=== PATIENT | female | born 1990 | race Caucasian/White ===

== ENCOUNTER 2018-11-24 19:09 | Inpatient (IN) | payer SELFPAY ==
--- NOTE | 2018-11-24 19:59 | ER Document Report ---
ED Medical Screen (RME) - General Chief Complaint: Fever Stated Complaint: RIGHT LEG SWELLING/FEVER/NAUSEA Time Seen by Provider: 11/24/18 19:55 Mode of Arrival: Ambulatory Information source: Patient Notes: 28-year-old female presents to ED for complaint of pain and swelling to the right inner thigh. She states she had cellulitis before and she thinks she is having cellulitis again. There is no redness to the area area is tender to touch. She does have bilateral lymphedema to both legs. She have a temperature of 101.3 pulse of 118. She is shivering in the pit area. Patient states she is very nauseated. She states all the symptoms started 2 to 3 hours ago. She denies any cough and any respiratory symptoms or any urinary symptoms. I have greeted and performed a rapid initial assessment of this patient. A comprehensive ED assessment and evaluation of the patient, analysis of test results and completion of medical decision making process will be conducted by an additional ED providers. TRAVEL OUTSIDE OF THE [place] IN LAST 30 DAYS: No - Related Data Allergies/Adverse Reactions: sulfamethoxazole [From Bactrim] Allergy (Verified 02/13/16 11:07) trimethoprim [From Bactrim] Allergy (Verified 02/13/16 11:07) Past Medical History - Immunizations Hx Diphtheria, Pertussis, Tetanus Vaccination: Yes Physical Exam - Vital signs Vitals: Temp Pulse Resp BP Pulse Ox 100.3 F 118 H 18 134/81 H 98 11/24/18 19:21 11/24/18 19:21 11/24/18 19:21 11/24/18 19:21 11/24/18 19:21 Course - Vital Signs Vital signs: Temp Pulse Resp BP Pulse Ox 100.3 F 118 H 18 134/81 H 98 11/24/18 19:21 11/24/18 19:21 11/24/18 19:21 11/24/18 19:21 11/24/18 19:21
[2018-11-24] MEDS ORDERED: NORMAL SALINE 1000 ML 1,000 ML IV ONE (20:00)
[2018-11-24] MEDS ORDERED: CEFTRIAXONE 1 GM/D5W RTU 1 GM/50 ML RTUPB IV ONE (20:00)
[2018-11-24] MEDS ORDERED: ACETAMINOPHEN 325 MG TABLET PO ONE ×3 (20:01→21:25)
[2018-11-24 20:47] LABS: HEMATOCRIT 44.3 % (36.0-47.0); HEMOGLOBIN 15.4 g/dL (12.0-15.5); MEAN CORPUSCULAR HEMOGLOBIN 31.4 pg (27.0-33.4); MEAN CORPUSCULAR HGB CONC 34.7 g/dL (32.0-36.0); MEAN CORPUSCULAR VOLUME 90 fl (80-97); PLATELET COUNT 195 10^3/uL (150-450); RED BLOOD COUNT 4.91 10^6/uL (3.72-5.28); RED CELL DISTRIBUTION WIDTH 12.8 % (11.5-14.0)
[2018-11-24 20:48] LABS: WHITE BLOOD COUNT 22.4 10^3/uL (4.0-10.5)
[2018-11-24 21:11] LABS: ALBUMIN 4.9 g/dL (3.5-5.0); ALKALINE PHOSPHATASE 86 U/L (38-126); ANION GAP 11 (5-19); ASPARTATE AMINO TRANSFERASE 23 U/L (14-36); BILIRUBIN,DIRECT 0.2 mg/dL (0.0-0.4); BILIRUBIN,TOTAL 0.4 mg/dL (0.2-1.3); BLOOD UREA NITROGEN 11 mg/dL (7-20); CALCIUM 9.7 mg/dL (8.4-10.2); CARBON DIOXIDE 26 mmol/L (22-30); CHLORIDE 102 mmol/L (98-107); GLUCOSE 103 mg/dL (75-110); POTASSIUM 3.8 mmol/L (3.6-5.0); TOTAL PROTEIN 7.5 g/dL (6.3-8.2)
[2018-11-24] MEDS ORDERED: KETOROLAC TROMETHAMINE INJ/PF 30 MG/1 ML SDV IV ONE (21:16)
[2018-11-24] MEDS ORDERED: ONDANSETRON HCL INJ/PF 4 MG/2 ML SDV IV ONE (21:16)
[2018-11-24 21:18] LABS: APPEARANCE,URINE CLEAR; BILIRUBIN,URINE NEGATIVE (NEGATIVE); COLOR,URINE YELLOW; GLUCOSE, URINE NEGATIVE (NEGATIVE); KETONES,URINE TRACE mg/dL (NEGATIVE); LEUKOCYTE ESTERASE,URINE NEGATIVE (NEGATIVE); NITRITE,URINE NEGATIVE (NEGATIVE); PROTEIN,URINE NEGATIVE (NEGATIVE); URINE SPECIFIC GRAVITY 1.027
[2018-11-24 21:24] LABS: ABSOLUTE MONOCYTES # (MANUAL) 0.4 10^3/uL (0.1-1.4); BASOPHILS % (MANUAL) 0 % (0-2); EOSINOPHILS % (MANUAL) 1 % (0-6); LYMPHOCYTES % (MANUAL) 13 % (13-45); MONOCYTES % (MANUAL) 2 % (3-13); RBC MORPHOLOGY COMMENT NORMO-CYTIC/CHROMIC; SEGMENTED NEUTROPHILS % (MAN) 79 % (42-78); TOTAL CELLS COUNTED 100
[2018-11-24 21:25] LABS: PLATELET COMMENT ADEQUATE
--- NOTE | 2018-11-24 21:52 | ER Document Report ---
Entered by LISSETH JAUREGUI SCRIBE 11/24/[id number] Acting as scribe for:ARASH MCKEON MD ED General - General Chief Complaint: Fever Stated Complaint: RIGHT LEG SWELLING/FEVER/NAUSEA Time Seen by Provider: 11/24/18 19:55 Mode of Arrival: Ambulatory Information source: Patient Notes: Patient is a 28 year old female that presents to the emergency department today with complaints of fevers with associated right thigh pain. Patient states she became very nauseated and vomited after arriving here. Patient states she began her menstrual period yesterday, stating it is normal and on time. Patient denies any vaginal discharge. Patient has frequent cellulitis which she states is usually "around her right ankle". Patient has no areas of erythema over the area of pain. TRAVEL OUTSIDE OF THE [place] IN LAST 30 DAYS: No - Related Data Allergies/Adverse Reactions: doxycycline Allergy (Verified 11/24/18 19:59) sulfamethoxazole [From Bactrim] Allergy (Verified 11/24/18 19:59) trimethoprim [From Bactrim] Allergy (Verified 11/24/18 19:59) Past Medical History - General Information source: Patient - Social History Smoking Status: Current Every Day Smoker Cigarette use (# per day): Yes - 1/2-3/4 ppd Frequency of alcohol use: Rare Drug Abuse: None Lives with: Family Family History: Reviewed & Not Pertinent Patient has suicidal ideation: No Patient has homicidal ideation: No - Past Medical History Cardiac Medical History: Reports: Hx Hypertension Skin Medical History: Reports Hx Cellulitis - usually around the right ankle Surgical Hx: Negative - Immunizations Hx Diphtheria, Pertussis, Tetanus Vaccination: Yes Review of Systems - Review of Systems Constitutional: See HPI, Fever EENT: No symptoms reported Cardiovascular: No symptoms reported Respiratory: No symptoms reported Gastrointestinal: See HPI, Nausea, Vomiting Genitourinary: No symptoms reported Female Genitourinary: Last menstrual period - 11/23. denies: Vaginal discharge Musculoskeletal: See HPI, Muscle pain - body aches Skin: No symptoms reported Hematologic/Lymphatic: No symptoms reported Neurological/Psychological: No symptoms reported -: Yes All other systems reviewed and negative Physical Exam - Vital signs Vitals: Temp Pulse Resp BP Pulse Ox 100.3 F 118 H 18 134/81 H 98 11/24/18 19:21 11/24/18 19:21 11/24/18 19:21 11/24/18 19:21 11/24/18 19:21 - Notes Notes: Physical Exam: General: Alert, appears nauseated and uncomfortable. HEENT: Normocephalic. Atraumatic. PERRL. Extraocular movements intact. Oropharynx clear. Neck: Supple. Non-tender. Respiratory: No respiratory distress. Clear and equal breath sounds bilaterally. Cardiovascular: Regular rate and rhythm. Abdominal: Holding emesis bag. Non-tender. No distension. Normal Bowel Sounds. Back: No gross abnormalities. Extremities: Moves all four extremities. Upper extremities: Normal inspection. Normal ROM. Lower extremities: Normal ROM. Calves are soft and non-tender. Right inferior inguinal nodes are enlarged and very tender. The right medial thigh is exquisitely tender over the greater saphenous and lymphatics. There is a small ulcerated area in the skin on the right lateral lower leg with some circumferential erythema. Bilateral chronic lymph edema. Neurological: Normal cognition. AAOx4. Normal speech. Psychological: Normal affect. Normal Mood. Skin: Warm. Hot to the touch. Normal color. Course - Vital Signs Vital signs: Temp Pulse Resp BP Pulse Ox 101.5 F H 118 H 17 129/78 H 99 11/24/18 22:38 11/24/18 19:21 11/24/18 22:00 11/24/18 21:19 11/24/18 22:00 - Laboratory Result Diagrams: 11/24/18 20:25 11/24/18 20:25 Laboratory results interpreted by me: 11/24/18 11/24/18 20:25 20:55 WBC 22.4 H Seg Neuts % (Manual) 79 H Monocytes % (Manual) 2 L Abs Neuts (Manual) 17.7 H Urine Ketones TRACE H Urine Urobilinogen 2.0 H - Diagnostic Test Radiology reviewed: Image reviewed, Reports reviewed - Chest x-ray does not show acute cardiopulmonary process - Consults Dr. Naik Time consulted: 22:41 Consulted provider: will come to ER Discharge - Discharge Clinical Impression: Lymphadenopathy, inguinal Fever Qualifiers: Fever type: unspecified Qualified Code(s): R50.9 - Fever, unspecified Leukocytosis Qualifiers: Leukocytosis type: unspecified Qualified Code(s): D72.829 - Elevated white blood cell count, unspecified Nausea and vomiting Qualifiers: Vomiting type: unspecified Vomiting Intractability: non-intractable Qualified Code(s): R11.2 - Nausea with vomiting, unspecified Cellulitis Qualifiers: Site of cellulitis: extremity Site of cellulitis of extremity: lower extremity Laterality: right Qualified Code(s): L03.115 - Cellulitis of right lower limb Condition: Stable Disposition: ADMITTED INPATIENT Admitting Provider: Gumaro (Hospitalist) Unit Admitted: Medical Floor Scribe Attestation: 11/24/18 22:22 I personally performed the services described in the documentation, reviewed and edited the documentation which was dictated to the scribe in my presence, and it accurately records my words and actions. I personally performed the services described in the documentation, reviewed and edited the documentation which was dictated to the scribe in my presence, and it accurately records my words and actions.
--- NOTE | 2018-11-24 21:55 | RADIOLOGY REPORT (SQ) ---
Chest 2 view on 11/24/2018 at 8:47 PM CLINICAL INDICATION: Fever, pedal edema COMPARISON: 09/23/2015 FINDINGS: Heart is upper limits normal for size. There is slight elevation of the right hemidiaphragm. Hilar and mediastinal contours are within normal limits. The lungs are clear. Pulmonary vascularity is within normal limits. IMPRESSION: No acute disease.
[2018-11-24] MEDS ORDERED: VANCOMYCIN HCL INJ 1000 MG VIAL IV ONE (22:41)
[2018-11-24] MEDS ORDERED: VANCOMYCIN HCL INJ 1000 MG VIAL IV SCH (23:45)
[2018-11-24] MEDS ORDERED: MAGNESIUM HYDROXIDE SUSP 30 ML UDCUP PO PRN (23:55)
[2018-11-24] MEDS ORDERED: LEVALBUTEROL HCL NEB 0.63 MG/3 ML AMPUL NEB PRN (23:55)
[2018-11-24] MEDS ORDERED: HYDRALAZINE HCL INJ/PF 20 MG/1 ML SDV IV PRN (23:55)
[2018-11-24] MEDS ORDERED: NALBUPHINE HCL INJ 10 MG/1 ML AMPULE IV PRN (23:55)
[2018-11-24] MEDS ORDERED: MAG HYDROX/AL HYDROX/SIMETH SUSP 30 ML UDCUP PO PRN (23:55)
[2018-11-24] MEDS ORDERED: ONDANSETRON HCL INJ/PF 4 MG/2 ML SDV IV PRN (23:59)
[2018-11-25] MEDS: NICOTINE 21 MG/24 HR PATCH.TD24 TD PRN ×2 (00:22→23:29)
[2018-11-25] MEDS ORDERED: PIPERACILLIN/TAZOBACTAM 3.375 GM VIAL IV ONE (00:30)
[2018-11-25] MEDS: TEMAZEPAM 15 MG CAPSULE PO PRN ×2 (01:21→21:33)
[2018-11-25] MEDS: NALBUPHINE HCL INJ 10 MG/1 ML AMPULE IV PRN ×6 (01:21→23:17)
[2018-11-25 01:40] LABS: FREE T3 4.98 pg/mL (2.77-5.27); FREE T4 (FREE THYROXINE) 1.26 ng/dL (0.78-2.19)
[2018-11-25 01:54] LABS: THYROID STIMULATING HORMONE 0.66 uIU/mL (0.47-4.68)
--- NOTE | 2018-11-25 02:19 | PDOC H&P ---
History of Present Illness Admission Date/PCP: 11/24/2018 23:25 No local PCP Patient complains of: Right groin pain History of Present Illness: TIERA HARRISON is a 28 year old female who presents the emergency room with acute onset of pain in her right groin. She admits a rapidly intensifying constant pain which is now of moderate severity in the right groin radiating into the proximal right anteromedial thigh, starting late this afternoon. The groin pain has been accompanied by a fever as well as nausea and vomiting. The pain is worse with weightbearing/walking. She has not identified any additional accompanying or associated signs or symptoms. She admits prior similar episodes of cellulitis in her lower extremities. She has not identified any additional aggravating or ameliorating factors for her right groin pain. In the emergency room she was found to have a fever greater than 102 F and an elevated white blood count with tender palpable lymph nodes in the right inguinal distribution. She was also noted to be developing an area of erythema edema and tenderness in the lower leg/ankle region on the right which actually increased in size during her ER evaluation. Patient was subsequently admitted to the hospital for further evaluation and treatment. Past Medical History Cardiac Medical History: Reports: Hypertension Denies: Coronary Artery Disease, Myocardial Infarction Pulmonary Medical History: Denies: Asthma, Chronic Obstructive Pulmonary Disease (COPD) EENT Medical History: Denies: Cataracts, Ears - Hearing aids Neurological Medical History: Denies: Hemorrhagic CVA, Ischemic CVA, Seizures Endocrine Medical History: Denies: Diabetes Mellitus Type 1, Diabetes Mellitus Type 2, Hyperthyroidism, Hypothyroidism Renal/ Medical History: Denies: Chronic Kidney Disease, Nephrolithiasis Malignancy Medical History: Reports: None GI Medical History: Denies: Cirrhosis, Crohn's Disease, Hepatitis, Ulcerative Colitis Musculoskeltal Medical History: Reports: Other - Back pain problems Denies: Arthritis, Fibromyalgia, Gout Skin Medical History: Reports: Other - Cellulitis of lower extremities on several occasions Denies: Eczema, Psoriasis Psychiatric Medical History: Reports: Tobacco Dependency Denies: Alcohol Dependency, Substance Abuse Traumatic Medical History: Reports: None Hematology: Denies: Anemia, Bleeding Tendencies Infectious Medical History: Reports: None Past Surgical History Past Surgical History: Reports: None Social History Information Source: Patient Lives with: Alone Smoking Status: Current Every Day Smoker Frequency of Alcohol Use: None Hx Recreational Drug Use: No Drugs: None Hx Prescription Drug Abuse: No - Advance Directive Resuscitation Status: Full Code Surrogate healthcare decision maker:: Janel Harrison Family History Family History: denies: CAD, DM, Hypertension, Malignancy Parental Family History Reviewed: Yes Children Family History Reviewed: No Sibling(s) Family History Reviewed.: Yes Medication/Allergy Home Medications: Cephalexin Monohydrate [Keflex 500 mg Capsule] 500 mg PO QID 10 Days capsule 09/17/14 Doxycycline Hyclate 100 mg PO BID #14 capsule 11/13/14 Cetirizine HCl [Zyrtec 10 mg Tablet] 1 tab PO DAILY #30 tablet 11/15/14 Clindamycin HCl [Cleocin 150 mg Capsule] 150 mg PO Q6 #40 capsule 11/15/14 Ranitidine HCl [Zantac 150 mg Tablet] 150 mg PO DAILY #30 tablet 11/15/14 Cephalexin Monohydrate [Keflex 500 mg Capsule] 500 mg PO Q6H 7 Days capsule 04/21/15 Prednisone [Deltasone 10 mg Tablet] 10 mg PO ASDIR PRN #21 tablet 04/21/15 Ranitidine HCl [Zantac 150 mg Tablet] 150 mg PO BID #14 tablet 04/21/15 Cetirizine HCl [Zyrtec] 10 mg PO DAILY #30 tablet 07/13/15 Prednisone [Deltasone] 60 mg PO DAILY 5 Days tablet 07/13/15 Cephalexin Monohydrate [Keflex 500 mg Capsule] 500 mg PO QID #40 capsule 08/28/15 Ondansetron [Zofran Odt 4 mg Tablet] 1 - 2 tab PO Q4H #10 tab.rapdis 09/06/15 Azithromycin [Zithromax 250 mg Tablet] 250 mg PO ASDIR PRN #6 tablet 10/01/15 Prednisone [Deltasone 10 mg Tablet] 10 mg PO ASDIR PRN #21 tablet 10/01/15 Clindamycin HCl 300 mg PO TID #30 capsule 10/24/15 Mupirocin 22 gm TP BID #1 oint..gm. 10/24/15 Cyclobenzaprine HCl [Flexeril 5 mg Tablet] 5 mg PO TID #7 tablet 11/11/15 Hydrocodone/Acetaminophen [Vicodin 5-300 mg Tablet] 1 - 2 tab PO ASDIR PRN #10 tab 11/11/15 Prednisone [Deltasone 20 mg Tablet] 3 tab PO DAILY 5 Days tablet 12/09/15 Tramadol HCl 50 mg PO Q6 PRN #15 tablet 12/09/15 Penicillin V Potassium [Penicillin Vk 500 mg Tablet] 500 mg PO QID #40 tablet 02/13/16 Tramadol HCl [Ultram 50 mg Tablet] 50 mg PO ASDIR PRN #20 tablet 02/13/16 Allergies/Adverse Reactions: doxycycline Allergy (Verified 11/24/18 19:59) sulfamethoxazole [From Bactrim] Allergy (Verified 11/24/18 19:59) trimethoprim [From Bactrim] Allergy (Verified 11/24/18 19:59) Review of Systems Constitutional: PRESENT: chills, fever(s) Eyes: ABSENT: visual disturbances, other - Eye pain Ears: ABSENT: hearing changes, other - Ear pain Nose, Mouth, and Throat: ABSENT: mouth pain, sore throat Cardiovascular: ABSENT: chest pain, palpitations Respiratory: ABSENT: cough, dyspnea Gastrointestinal: PRESENT: as per HPI, nausea, vomiting. ABSENT: abdominal pain, constipation, diarrhea Genitourinary: ABSENT: dysuria, hematuria Integumentary: PRESENT: as per HPI, erythema - Erythema and swelling of the distal right lower leg/ankle, other - Tenderness to palpation in the right groin. ABSENT: pruritus, rash Neurological: ABSENT: confusion, convulsions, focal weakness, memory loss, syncope Psychiatric: ABSENT: anxiety, depression Endocrine: ABSENT: cold intolerance, heat intolerance Hematologic/Lymphatic: ABSENT: easy bleeding, easy bruising Allergic/Immunologic: ABSENT: seasonal rhinorrhea Physical Exam Vital Signs: Temp Pulse Resp BP Pulse Ox 101.5 F H 118 H 17 129/78 H 99 11/24/18 22:38 11/24/18 19:21 11/24/18 22:00 11/24/18 21:19 11/24/18 22:00 Intake & Output 11/22/18 11/23/18 11/24/18 23:59 23:59 23:59 Intake Total 1050 Balance 1050 Weight 103.8 kg General appearance: PRESENT: no acute distress, cooperative Head exam: PRESENT: atraumatic, normocephalic Eye exam: PRESENT: conjunctiva pink. ABSENT: conjunctival injection, scleral icterus Ear exam: PRESENT: normal external ear exam. ABSENT: bleeding, drainage Mouth exam: PRESENT: dry mucosa, neck supple Neck exam: ABSENT: thyromegaly, tracheal deviation Respiratory exam: PRESENT: clear to auscultation sourav, symmetrical, unlabored Cardiovascular exam: PRESENT: RRR. ABSENT: clicks, gallop, rubs Pulses: PRESENT: normal radial pulses, normal dorsalis pedis pul Vascular exam: PRESENT: normal capillary refill. ABSENT: pallor GI/Abdominal exam: PRESENT: normal bowel sounds, soft Rectal exam: PRESENT: deferred Extremities exam: PRESENT: tenderness - Tenderness and swelling with local erythema in the right distal lower leg/ankle, tenderness and swelling with palpable lymphadenopathy in the right groin.. ABSENT: joint swelling, pedal edema Musculoskeletal exam: ABSENT: deformity, dislocation Neurological exam: PRESENT: alert, oriented to person, oriented to place, oriented to time, oriented to situation, CN II-XII grossly intact. ABSENT: motor sensory deficit Psychiatric exam: PRESENT: appropriate affect, normal mood Skin exam: PRESENT: dry, erythema - Erythema and tenderness in the right groin and lower extremity as previously described, intact, warm. ABSENT: jaundice, rash, urticaria Results Laboratory Results: 11/24/18 20:25 11/24/18 20:25 11/24/18 11/24/18 11/24/18 20:25 20:25 20:25 WBC 22.4 H RBC 4.91 Hgb 15.4 Hct 44.3 MCV 90 MCH 31.4 MCHC 34.7 RDW 12.8 Plt Count 195 Seg Neutrophils % Not Reportable Sodium 139.1 Potassium 3.8 Chloride 102 Carbon Dioxide 26 Anion Gap 11 BUN 11 Creatinine 0.85 Est GFR ( Amer) > 60 Glucose 103 Lactic Acid Calcium 9.7 Total Bilirubin 0.4 AST 23 Alkaline Phosphatase 86 Total Protein 7.5 Albumin 4.9 Serum HCG, Qual NEGATIVE Urine Color Urine Appearance Urine pH Ur Specific Turney Urine Protein Urine Glucose (UA) Urine Ketones Urine Blood Urine Nitrite Ur Leukocyte Esterase Urine WBC (Auto) Urine RBC (Auto) 11/24/18 11/24/18 20:25 20:55 WBC RBC Hgb Hct MCV MCH MCHC RDW Plt Count Seg Neutrophils % Sodium Potassium Chloride Carbon Dioxide Anion Gap BUN Creatinine Est GFR ( Amer) Glucose Lactic Acid 1.9 Calcium Total Bilirubin AST Alkaline Phosphatase Total Protein Albumin Serum HCG, Qual Urine Color YELLOW Urine Appearance CLEAR Urine pH 5.0 Ur Specific Turney 1.027 Urine Protein NEGATIVE Urine Glucose (UA) NEGATIVE Urine Ketones TRACE H Urine Blood NEGATIVE Urine Nitrite NEGATIVE Ur Leukocyte Esterase NEGATIVE Urine WBC (Auto) 3 Urine RBC (Auto) 1 Impressions: Chest X-Ray 11/24/18 20:00 IMPRESSION: No acute disease. Assessment and Plan - Diagnosis (1) Cellulitis of right lower leg Is this a current diagnosis for this admission?: Yes Plan: Patient cellulitis will be treated with intravenous antibiotics utilizing vancomycin and Zosyn. Patient's clinical course will be observed closely with further intervention as indicated. Blood cultures are pending at the present time. A daily CBC, metabolic profile and magnesium level will be obtained. (2) Lymphadenopathy, inguinal Is this a current diagnosis for this admission?: Yes Plan: The patient's inguinal lymphadenopathy will be treated for its infectious etiology as noted above for the treatment of cellulitis. The pain associated w ith the patient's inguinal lymphadenopathy will be treated with Nubain 5 to 10 mg IV every 3 hours on a as needed basis (using a sliding scale) for more severe pain, for lesser pain she will be able to use Tylenol or ibuprofen at her preference. (3) Nausea & vomiting Qualifiers: Vomiting type: unspecified Vomiting Intractability: non-intractable Qualified Code(s): R11.2 - Nausea with vomiting, unspecified Is this a current diagnosis for this admission?: Yes Plan: Patient's nausea and vomiting will be treated with IV Zofran 4 mg every 4 hours as needed. (4) Fever Qualifiers: Fever type: unspecified Qualified Code(s): R50.9 - Fever, unspecified Is this a current diagnosis for this admission?: Yes Plan: Patient's fever will be treated with ibuprofen and/or Tylenol as required. (5) Leukocytosis Qualifiers: Leukocytosis type: unspecified Qualified Code(s): D72.829 - Elevated white blood cell count, unspecified Is this a current diagnosis for this admission?: Yes Plan: Patient's leukocytosis will be monitored with a daily CBC. (6) Tobacco use disorder, severe, dependence Is this a current diagnosis for this admission?: Yes Plan: Smoking cessation has been advised and counseling has been given at the bedside briefly. A nicotine replacement patch is available for the patient's use, as desired. - Time Time Spent with patient: 15-24 minutes Smoking Cessation Education: 3 to 10 minutes Medications reviewed and adjusted accordingly: Yes Anticipated discharge: Home - Inpatient Certification Based on my medical assessment, after consideration of the patient's comor bidities, presenting symptoms, or acuity I expect that the services needed warrant INPATIENT care.: Yes I certify that my determination is in accordance with my understanding of Medicare's requirements for reasonable and necessary INPATIENT services [42 CFR 412.3e].: Yes Medical Necessity: Need Close Monitoring Due to Risk of Patient Decompensation, Need for Pain Control, Need for IV Antibiotics, Risk of Complication if Not Cared For in Hospital
[2018-11-25] MEDS: IBUPROFEN 800 MG TABLET PO PRN (06:18)
[2018-11-25] MEDS: HEPARIN SOD (PORCINE) 5,000 UNIT/ML 1 ML VIAL SUBCUT SCH ×3 (06:19→21:32)
[2018-11-25 08:14] LABS: HEMATOCRIT 35.6 % (36.0-47.0); MEAN CORPUSCULAR HEMOGLOBIN 31.7 pg (27.0-33.4); MEAN CORPUSCULAR VOLUME 91 fl (80-97); PLATELET COUNT 144 10^3/uL (150-450); RED BLOOD COUNT 3.93 10^6/uL (3.72-5.28); RED CELL DISTRIBUTION WIDTH 12.6 % (11.5-14.0); WHITE BLOOD COUNT 25.2 10^3/uL (4.0-10.5)
[2018-11-25 08:32] LABS: ANION GAP 8 (5-19); BLOOD UREA NITROGEN 13 mg/dL (7-20); CALCIUM 8.8 mg/dL (8.4-10.2); CARBON DIOXIDE 23 mmol/L (22-30); CHLORIDE 105 mmol/L (98-107); CHOLESTEROL 129.16 mg/dL (0-200); GLUCOSE 102 mg/dL (75-110); POTASSIUM 3.9 mmol/L (3.6-5.0); TRIGLYCERIDES 86 mg/dL (<150)
[2018-11-25 08:43] LABS: DIRECT LDL 84 mg/dL (<100)
[2018-11-25 08:49] LABS: HEMOGLOBIN 12.5 g/dL (12.0-15.5)
[2018-11-25] MEDS: DOCUSATE SODIUM 100 MG CAPSULE PO SCH ×2 (09:54→17:38)
[2018-11-25] MEDS: FAMOTIDINE 20 MG TABLET PO SCH ×2 (09:54→21:33)
--- NOTE | 2018-11-25 10:34 | Progress Note Acknowledgement ---
Progress Note Acknowledgement Progess Note Acknowledgement: I, the undersigned member of the medical staff with appropriate privileges and with supervisory authority over [Mingo Woods], a dependent practice allied health professional, acknowledge that I have reviewed the progress notes entered on this patient, and in my professional judgment believe that the assessment made and/or any care evidenced was appropriate
--- NOTE | 2018-11-25 10:38 | PDOC PROGRESS REPORT ---
Subjective Progress Note for:: 11/25/18 Subjective:: 11/25/2018-no complaints this a.m. Reason For Visit: CELLULITIS RIGHT LOWER EXTREMITY Physical Exam Vital Signs: Temp Pulse Resp BP Pulse Ox 98.8 F 82 16 102/56 L 97 11/25/18 08:00 11/25/18 08:00 11/25/18 08:00 11/25/18 08:00 11/25/18 08:00 Intake & Output 11/24/18 11/25/18 11/26/18 06:59 06:59 06:59 Intake Total 1310 Balance 1310 Weight 104.1 kg General appearance: PRESENT: no acute distress, well-developed, well-nourished Head exam: PRESENT: atraumatic, normocephalic Eye exam: PRESENT: conjunctiva pink, EOMI, PERRLA. ABSENT: scleral icterus Ear exam: PRESENT: normal external ear exam Mouth exam: PRESENT: moist, tongue midline Teeth exam: PRESENT: dental caries, poor dentation Neck exam: ABSENT: carotid bruit, JVD, lymphadenopathy, thyromegaly Respiratory exam: PRESENT: clear to auscultation sourav. ABSENT: rales, rhonchi, wheezes Cardiovascular exam: PRESENT: RRR. ABSENT: diastolic murmur, rubs, systolic murmur Pulses: PRESENT: normal dorsalis pedis pul Vascular exam: PRESENT: normal capillary refill GI/Abdominal exam: PRESENT: normal bowel sounds, soft. ABSENT: distended, guarding, mass, organolmegaly, rebound, tenderness Rectal exam: PRESENT: deferred Extremities exam: PRESENT: full ROM. ABSENT: calf tenderness, clubbing, pedal edema Neurological exam: PRESENT: alert, awake, oriented to person, oriented to place, oriented to time, oriented to situation, CN II-XII grossly intact. ABSENT: motor sensory deficit Psychiatric exam: PRESENT: appropriate affect, normal mood. ABSENT: homicidal ideation, suicidal ideation Skin exam: PRESENT: dry, intact, warm, other - Cellulitis of the right lower extremity involving the anterior lower extremity from proximal ankle to mid cartwright anteriorly. ABSENT: cyanosis, rash Results Laboratory Results: 11/25/18 07:33 11/25/18 07:33 11/24/18 11/24/18 11/24/18 20:25 20:25 20:25 WBC 22.4 H RBC 4.91 Hgb 15.4 Hct 44.3 MCV 90 MCH 31.4 MCHC 34.7 RDW 12.8 Plt Count 195 Seg Neutrophils % Not Reportable Sodium 139.1 Potassium 3.8 Chloride 102 Carbon Dioxide 26 Anion Gap 11 BUN 11 Creatinine 0.85 Est GFR ( Amer) > 60 Glucose 103 Lactic Acid Calcium 9.7 Magnesium Total Bilirubin 0.4 AST 23 Alkaline Phosphatase 86 Total Protein 7.5 Albumin 4.9 Triglycerides Cholesterol LDL Cholesterol Direct VLDL Cholesterol HDL Cholesterol TSH Free T4 Free T3 pg/mL Serum HCG, Qual NEGATIVE Urine Color Urine Appearance Urine pH Ur Specific [place] Urine Protein Urine Glucose (UA) Urine Ketones Urine Blood Urine Nitrite Ur Leukocyte Esterase Urine WBC (Auto) Urine RBC (Auto) 11/24/18 11/24/18 11/24/18 20:25 20:25 20:55 WBC RBC Hgb Hct MCV MCH MCHC RDW Plt Count Seg Neutrophils % Sodium Potassium Chloride Carbon Dioxide Anion Gap BUN Creatinine Est GFR ( Amer) Glucose Lactic Acid 1.9 Calcium Magnesium Total Bilirubin AST Alkaline Phosphatase Total Protein Albumin Triglycerides Cholesterol LDL Cholesterol Direct VLDL Cholesterol HDL Cholesterol TSH 0.66 Free T4 1.26 Free T3 pg/mL 4.98 Serum HCG, Qual Urine Color YELLOW Urine Appearance CLEAR Urine pH 5.0 Ur Specific [place] 1.027 Urine Protein NEGATIVE Urine Glucose (UA) NEGATIVE Urine Ketones TRACE H Urine Blood NEGATIVE Urine Nitrite NEGATIVE Ur Leukocyte Esterase NEGATIVE Urine WBC (Auto) 3 Urine RBC (Auto) 1 11/25/18 11/25/18 07:33 07:33 WBC 25.2 H RBC 3.93 Hgb 12.5 D Hct 35.6 L MCV 91 MCH 31.7 MCHC 35.0 RDW 12.6 Plt Count 144 L Seg Neutrophils % Sodium 136.3 L Potassium 3.9 Chloride 105 Carbon Dioxide 23 Anion Gap 8 BUN 13 Creatinine 0.73 Est GFR ( Amer) > 60 Glucose 102 Lactic Acid Calcium 8.8 Magnesium 1.6 Total Bilirubin AST Alkaline Phosphatase Total Protein Albumin Triglycerides 86 Cholesterol 129.16 LDL Cholesterol Direct 84 VLDL Cholesterol 17.0 HDL Cholesterol 39 L TSH Free T4 Free T3 pg/mL Serum HCG, Qual Urine Color Urine Appearance Urine pH Ur Specific [place] Urine Protein Urine Glucose (UA) Urine Ketones Urine Blood Urine Nitrite Ur Leukocyte Esterase Urine WBC (Auto) Urine RBC (Auto) Impressions: Chest X-Ray 11/24/18 20:00 IMPRESSION: No acute disease. Assessment and Plan - Diagnosis (1) Cellulitis of right lower leg Is this a current diagnosis for this admission?: Yes Plan: Patient cellulitis will be treated with intravenous antibiotics utilizing vancomycin and Zosyn. Patient's clinical course will be observed closely with further intervention as indicated. Blood cultures are pending at the present time. A daily CBC, metabolic profile and magnesium level will be obtained. 11/25/2018-blood cultures returning with gram-positive cocci in chains. Continue vancomycin at this time. Continue Zosyn as well until cultures have completed. (2) Lymphadenopathy, inguinal Is this a current diagnosis for this admission?: Yes Plan: The patient's inguinal lymphadenopathy will be treated for its infectious etiology as noted above for the treatment of cellulitis. The pain associated with the patient's inguinal lymphadenopathy will be treated with Nubain 5 to 10 mg IV every 3 hours on a as needed basis (using a sliding scale) for more severe pain, for lesser pain she will be able to use Tylenol or ibuprofen at her preference. 11/25/2018-improved this morning. Continue PRN new pain. (3) Nausea & vomiting Qualifiers: Vomiting type: unspecified Vomiting Intractability: non-intractable Qualified Code(s): R11.2 - Nausea with vomiting, unspecified Is this a current diagnosis for this admission?: Yes Plan: Patient's nausea and vomiting will be treated with IV Zofran 4 mg every 4 hours as needed. 11/25/2018-continue Zofran. (4) Fever Qualifiers: Fever type: unspecified Qualified Code(s): R50.9 - Fever, unspecified Is this a current diagnosis for this admission?: Yes Plan: Patient's fever will be treated with ibuprofen and/or Tylenol as required. 11/25/2018-continue PRN ibuprofen and Tylenol as needed (5) Leukocytosis Qualifiers: Leukocytosis type: unspecified Qualified Code(s): D72.829 - Elevated white blood cell count, unspecified Is this a current diagnosis for this admission?: Yes Plan: Patient's leukocytosis will be monitored with a daily CBC. 11/25/2018-worsened this a.m. Patient does show gram-positive cocci in chains. Continues on Vanco Zosyn. - Time Time Spent with patient: 15-24 minutes - Inpatient Certification Based on my medical assessment, after consideration of the patient's comorbidities, presenting symptoms, or acuity I expect that the services needed warrant INPATIENT care.: Yes I certify that my determination is in accordance with my understanding of Medicare's requirements for reasonable and necessary INPATIENT services [42 CFR 412.3e].: Yes Medical Necessity: Other - IV advised, IV pain control
[2018-11-25] MEDS: ACETAMINOPHEN 325 MG TABLET PO PRN ×2 (11:28→18:10)
[2018-11-25] MEDS: PIPERACILLIN SODIUM/TAZOBACTAM 3.375 GM in NORMAL SALINE 100 ML IV SCH ×3 (13:00→23:17)
[2018-11-25] MEDS: VANCOMYCIN HCL 1,500 MG in DEXTROSE 5%-WATER 250 ML IV SCH ×2 (14:42→21:32)
[2018-11-26] MEDS: ACETAMINOPHEN 325 MG TABLET PO PRN (03:28)
[2018-11-26] MEDS: NALBUPHINE HCL INJ 10 MG/1 ML AMPULE IV PRN ×7 (03:39→23:50)
[2018-11-26] MEDS: PIPERACILLIN SODIUM/TAZOBACTAM 3.375 GM in NORMAL SALINE 100 ML IV SCH ×4 (06:27→23:43)
[2018-11-26 06:38] LABS: HEMATOCRIT 36.5 % (36.0-47.0); HEMOGLOBIN 12.7 g/dL (12.0-15.5); MEAN CORPUSCULAR HEMOGLOBIN 31.6 pg (27.0-33.4); MEAN CORPUSCULAR HGB CONC 34.8 g/dL (32.0-36.0); MEAN CORPUSCULAR VOLUME 91 fl (80-97); PLATELET COUNT 130 10^3/uL (150-450); RED BLOOD COUNT 4.02 10^6/uL (3.72-5.28); RED CELL DISTRIBUTION WIDTH 12.8 % (11.5-14.0); WHITE BLOOD COUNT 12.8 10^3/uL (4.0-10.5)
[2018-11-26] MEDS: VANCOMYCIN HCL 1,500 MG in DEXTROSE 5%-WATER 250 ML IV SCH ×3 (06:48→21:00)
[2018-11-26] MEDS: HEPARIN SOD (PORCINE) 5,000 UNIT/ML 1 ML VIAL SUBCUT SCH ×2 (06:49→17:25)
[2018-11-26 06:59] LABS: ANION GAP 6 (5-19); BLOOD UREA NITROGEN 7 mg/dL (7-20); CALCIUM 8.8 mg/dL (8.4-10.2); CARBON DIOXIDE 24 mmol/L (22-30); CHLORIDE 109 mmol/L (98-107); GLUCOSE 121 mg/dL (75-110); POTASSIUM 3.7 mmol/L (3.6-5.0)
[2018-11-26] MEDS: IBUPROFEN 800 MG TABLET PO PRN ×2 (08:53→17:41)
[2018-11-26] MEDS: FAMOTIDINE 20 MG TABLET PO SCH ×2 (10:28→20:59)
[2018-11-26] MEDS: DOCUSATE SODIUM 100 MG CAPSULE PO SCH ×2 (10:28→17:25)
--- NOTE | 2018-11-26 17:26 | PDOC PROGRESS REPORT ---
Subjective Progress Note for:: 11/26/18 Subjective:: Patient is a 28-year-old female with prior leg cellulitis who presented with increasing pain, swelling and tenderness in the right lower extremity. She was admitted for right lower extremity cellulitis and was started on IV antibiotics. No acute event overnight. Patient says that the erythema and swelling have improved but the pain is slightly worse from yesterday. She denies any other acute complaints. Cellulitic lesions have not gone beyond the day medications. Reason For Visit: CELLULITIS RIGHT LOWER EXTREMITY Physical Exam Vital Signs: Temp Pulse Resp BP Pulse Ox 98.6 F 69 20 103/58 L 98 11/26/18 12:00 11/26/18 12:00 11/26/18 12:00 11/26/18 12:00 11/26/18 12:00 Intake & Output 11/25/18 11/26/18 11/27/18 06:59 06:59 06:59 Intake Total 1310 1400 1291 Balance 1310 1400 1291 Weight 229 lb 8.019 oz 245 lb 2.464 oz General appearance: PRESENT: no acute distress, well-developed, well-nourished Head exam: PRESENT: atraumatic, normocephalic Eye exam: PRESENT: conjunctiva pink, EOMI, PERRLA. ABSENT: scleral icterus Ear exam: PRESENT: normal external ear exam Mouth exam: PRESENT: moist, tongue midline Neck exam: ABSENT: carotid bruit, JVD, lymphadenopathy, thyromegaly Respiratory exam: PRESENT: clear to auscultation sourav. ABSENT: rales, rhonchi, wheezes Cardiovascular exam: PRESENT: RRR. ABSENT: diastolic murmur, rubs, systolic murmur Pulses: PRESENT: normal dorsalis pedis pul GI/Abdominal exam: PRESENT: normal bowel sounds, soft. ABSENT: distended, guarding, mass, organolmegaly, rebound, tenderness Rectal exam: PRESENT: deferred Extremities exam: PRESENT: other - Note of erythema and swelling on the right leg and her right medial thigh Neurological exam: PRESENT: alert, awake, oriented to person, oriented to place, oriented to time, oriented to situation, CN II-XII grossly intact. ABSENT: motor sensory deficit Results Laboratory Results: 11/26/18 06:14 11/26/18 06:14 11/26/18 11/26/18 06:14 06:14 WBC 12.8 H RBC 4.02 Hgb 12.7 Hct 36.5 MCV 91 MCH 31.6 MCHC 34.8 RDW 12.8 Plt Count 130 L Sodium 139.4 Potassium 3.7 Chloride 109 H Carbon Dioxide 24 Anion Gap 6 BUN 7 Creatinine 0.76 Est GFR ( Amer) > 60 Glucose 121 H Calcium 8.8 Magnesium 1.8 Impressions: Chest X-Ray 11/24/18 20:00 IMPRESSION: No acute disease. Assessment and Plan - Diagnosis (1) Cellulitis of right lower extremity Is this a current diagnosis for this admission?: Yes Plan: Currently on vancomycin and Zosyn. Blood cultures are growing group A strep 2/2. Will await final sensitivity tomorrow prior to de-escalation. (2) Streptococcal bacteremia Is this a current diagnosis for this admission?: Yes Plan: As per #1. - Time Time Spent with patient: 25-34 minutes
[2018-11-26] MEDS: TEMAZEPAM 15 MG CAPSULE PO PRN (23:43)
[2018-11-27] MEDS: NALBUPHINE HCL INJ 10 MG/1 ML AMPULE IV PRN ×4 (06:10→20:02)
[2018-11-27] MEDS: IBUPROFEN 800 MG TABLET PO PRN ×2 (06:11→19:05)
[2018-11-27] MEDS: PIPERACILLIN SODIUM/TAZOBACTAM 3.375 GM in NORMAL SALINE 100 ML IV SCH ×2 (06:11→11:36)
[2018-11-27 06:49] LABS: HEMATOCRIT 42.9 % (36.0-47.0); HEMOGLOBIN 14.7 g/dL (12.0-15.5); MEAN CORPUSCULAR HEMOGLOBIN 31.5 pg (27.0-33.4); MEAN CORPUSCULAR HGB CONC 34.3 g/dL (32.0-36.0); MEAN CORPUSCULAR VOLUME 92 fl (80-97); PLATELET COUNT 136 10^3/uL (150-450); RED BLOOD COUNT 4.68 10^6/uL (3.72-5.28); RED CELL DISTRIBUTION WIDTH 13.2 % (11.5-14.0); WHITE BLOOD COUNT 10.3 10^3/uL (4.0-10.5)
[2018-11-27] MEDS: VANCOMYCIN HCL 1,500 MG in DEXTROSE 5%-WATER 250 ML IV SCH ×2 (06:59→14:23)
[2018-11-27 07:03] LABS: ANION GAP 8 (5-19); BLOOD UREA NITROGEN 4 mg/dL (7-20); CALCIUM 9.8 mg/dL (8.4-10.2); CARBON DIOXIDE 26 mmol/L (22-30); CHLORIDE 110 mmol/L (98-107); GLUCOSE 85 mg/dL (75-110); POTASSIUM 4.2 mmol/L (3.6-5.0)
[2018-11-27 07:04] LABS: VANCOMYCIN,TROUGH 10.8 ug/mL (5.0-20.0)
[2018-11-27] MEDS: HEPARIN SOD (PORCINE) 5,000 UNIT/ML 1 ML VIAL SUBCUT SCH ×2 (09:12→17:17)
[2018-11-27] MEDS: DOCUSATE SODIUM 100 MG CAPSULE PO SCH ×2 (09:21→17:23)
[2018-11-27] MEDS: FAMOTIDINE 20 MG TABLET PO SCH ×2 (09:21→21:46)
[2018-11-27] MEDS: NICOTINE 21 MG/24 HR PATCH.TD24 TD PRN (11:41)
--- NOTE | 2018-11-27 16:26 | PDOC PROGRESS REPORT ---
Subjective Progress Note for:: 11/27/18 Subjective:: Patient is a 28-year-old female with prior leg cellulitis who presented with increasing pain, swelling and tenderness in the right lower extremity. She was admitted for right lower extremity cellulitis and was started on IV antibiotics. 11/26: Patient says that the erythema and swelling have improved but the pain is slightly worse from yesterday. She denies any other acute complaints. Cellulitic lesions have not gone beyond the demarcations 11/27: No acute event overnight. The erythema continues to slowly but gradually improve but she says that the pain has not improved from yesterday. Reason For Visit: CELLULITIS RIGHT LOWER EXTREMITY Physical Exam Vital Signs: Temp Pulse Resp BP Pulse Ox 98.6 F 80 23 H 125/79 100 11/27/18 15:35 11/27/18 15:35 11/27/18 15:35 11/27/18 15:35 11/27/18 15:35 Intake & Output 11/26/18 11/27/18 11/28/18 06:59 06:59 06:59 Intake Total 1400 3072 1060 Balance 1400 3072 1060 Weight 245 lb 2.464 oz 242 lb 15.19 oz General appearance: PRESENT: no acute distress, well-developed, well-nourished Head exam: PRESENT: atraumatic, normocephalic Eye exam: PRESENT: conjunctiva pink, EOMI, PERRLA. ABSENT: scleral icterus Ear exam: PRESENT: normal external ear exam Mouth exam: PRESENT: moist, tongue midline Neck exam: ABSENT: carotid bruit, JVD, lymphadenopathy, thyromegaly Respiratory exam: PRESENT: clear to auscultation sourav. ABSENT: rales, rhonchi, wheezes Cardiovascular exam: PRESENT: RRR. ABSENT: diastolic murmur, rubs, systolic murmur Pulses: PRESENT: normal dorsalis pedis pul GI/Abdominal exam: PRESENT: normal bowel sounds, soft. ABSENT: distended, guarding, mass, organolmegaly, rebound, tenderness Rectal exam: PRESENT: deferred Extremities exam: PRESENT: other - Erythematous lesions in the right lower extremity Neurological exam: PRESENT: alert, awake, oriented to person, oriented to place, oriented to time, oriented to situation, CN II-XII grossly intact. ABSENT: motor sensory deficit Results Laboratory Results: 11/27/18 06:07 11/27/18 06:07 11/27/18 11/27/18 06:07 06:07 WBC 10.3 RBC 4.68 Hgb 14.7 Hct 42.9 MCV 92 MCH 31.5 MCHC 34.3 RDW 13.2 Plt Count 136 L Sodium 144.1 Potassium 4.2 Chloride 110 H Carbon Dioxide 26 Anion Gap 8 BUN 4 L Creatinine 0.71 Est GFR ( Amer) > 60 Glucose 85 Calcium 9.8 Magnesium 2.1 11/24/18 21:15 Blood Blood Culture - Final Group A Beta Streptococcus 11/24/18 20:25 Blood Blood Culture - Final Group A Beta Streptococcus Impressions: Chest X-Ray 11/24/18 20:00 IMPRESSION: No acute disease. Assessment and Plan - Diagnosis (1) Cellulitis of right lower extremity Is this a current diagnosis for this admission?: Yes Plan: 11/26: Currently on vancomycin and Zosyn. Blood cultures are growing group A strep 2/2. Will await final sensitivity tomorrow prior to de-escalation. 11/27: Switch IV antibiotics to clindamycin. (2) Streptococcal bacteremia Is this a current diagnosis for this admission?: Yes Plan: Switch IV antibiotics of clindamycin. Repeat blood culture has been negative. - Time Time Spent with patient: 15-24 minutes
--- NOTE | 2018-11-27 18:10 | Progress Note ---
Provider Note Provider Note: ID Consult Note Asked to review patient's chart by Pharmacy. Pt not seen or examined. Ms. Chand is a 28 year old obese woman admitted to [facility] on 11/24/18 with pain in her right groin and anteromedial thigh, associated with fever and N&V. She was found to have a fever, palpable R inguinal lymphadenopathy and erythema and edema with tenderness involving the R lower leg and ankle. She was found to have a leukocytosis also. Empiric broad spectrum antibiotics Zosyn and vancomycin were initiated pending further evaluation and results of blood cultures, which have since shown growth of Group A Strep in both sets. Per most recent previous provider note, the erythema and swelling of her R leg and medial thigh have improved. She is afebrile, hemodynamically stable, and WBC count has normalized. Impression/Recommendations Group A Strep bacteremia secondary to R leg cellulitis - De-escalation from Zosyn/vancomycin is appropriate. Beta hemolytic strep are responsible for the vast majority of nonpurulent cellulitis. Pt has shown some clinical improvement. - In terms of antibiotic selection, Group A Strep is universally susceptible to penicillin. Although penicillin is regarded as the drug of choice for Group A Strep, treating with IV Ancef 2 g q8h would be reasonable since it is active against Group A Strep, well-tolerated, narrow spectrum, a recommended agent for nonpurulent cellulitis and requires less frequent dosing than IV penicillin G. Can transition from IV Ancef to PO Keflex 500 mg QID whenever pt is ready for discharge if she requires continued treatment at that point. Ultimately, duration of therapy depends upon clinical response with regard to her cellulitis (could be anywhere from around 7 days to up to 10-14 days). - Generally, clindamycin is considered an alternative in penicillin-allergic patients with Group A Strep infections. The other usual role for clindamycin with Group A Strep infections is in the initial treatment of Group A Strep necrotizing fasciitis or Group A Strep toxic shock syndrome (in addition to a beta-lactam); however, neither are suspected. While the isolate was susceptible to clindamycin, the additional anaerobic activity is not needed, and the association with C. difficile and clindamycin is a recognized potential problem. Braden Maciel MD COUNT INCLUDES THE [facility] Infectious Diseases pager [phone]
[2018-11-27] MEDS: CLINDAMYCIN 600 MG/D5W RTU 600 MG/50 ML RTUPB IV SCH (21:48)
[2018-11-28] MEDS: TEMAZEPAM 15 MG CAPSULE PO PRN
[2018-11-28] MEDS: IBUPROFEN 800 MG TABLET PO PRN (06:38)
[2018-11-28] MEDS: CLINDAMYCIN 600 MG/D5W RTU 600 MG/50 ML RTUPB IV SCH (06:38)
[2018-11-28] MEDS: NALBUPHINE HCL INJ 10 MG/1 ML AMPULE IV PRN ×2 (06:39)
[2018-11-28 07:55] LABS: ANION GAP 9 (5-19); BLOOD UREA NITROGEN 6 mg/dL (7-20); CALCIUM 9.1 mg/dL (8.4-10.2); CARBON DIOXIDE 23 mmol/L (22-30); CHLORIDE 109 mmol/L (98-107); GLUCOSE 78 mg/dL (75-110); POTASSIUM 3.9 mmol/L (3.6-5.0)
[2018-11-28] MEDS: HEPARIN SOD (PORCINE) 5,000 UNIT/ML 1 ML VIAL SUBCUT SCH ×2 (09:13→17:41)
[2018-11-28 09:58] LABS: HEMATOCRIT 34.1 % (36.0-47.0); MEAN CORPUSCULAR HEMOGLOBIN 31.9 pg (27.0-33.4); MEAN CORPUSCULAR HGB CONC 35.2 g/dL (32.0-36.0); MEAN CORPUSCULAR VOLUME 91 fl (80-97); PLATELET COUNT 151 10^3/uL (150-450); RED BLOOD COUNT 3.76 10^6/uL (3.72-5.28); RED CELL DISTRIBUTION WIDTH 12.9 % (11.5-14.0); WHITE BLOOD COUNT 7.3 10^3/uL (4.0-10.5)
[2018-11-28] MEDS ORDERED: CEFAZOLIN 2 GM/D5W RTU 2 GM/50 ML RTUPB IV SCH (10:15)
[2018-11-28] MEDS: FAMOTIDINE 20 MG TABLET PO SCH ×2 (10:38→21:32)
[2018-11-28] MEDS: DOCUSATE SODIUM 100 MG CAPSULE PO SCH ×2 (10:38→17:41)
[2018-11-28] MEDS: KETOROLAC TROMETHAMINE INJ/PF 30 MG/1 ML SDV IV PRN ×2 (10:39→17:41)
[2018-11-28] MEDS: GABAPENTIN 100 MG CAPSULE PO SCH ×2 (14:39→21:32)
[2018-11-28] MEDS: CEFAZOLIN SODIUM 2 GM in DEXTROSE 5%-WATER 100 ML IV SCH ×2 (14:43→21:32)
--- NOTE | 2018-11-28 17:08 | PDOC PROGRESS REPORT ---
Subjective Progress Note for:: 11/28/18 Subjective:: Patient is a 28-year-old female with prior leg cellulitis who presented with increasing pain, swelling and tenderness in the right lower extremity. She was admitted for right lower extremity cellulitis and was started on IV antibiotics. 11/26: Patient says that the erythema and swelling have improved but the pain is slightly worse from yesterday. She denies any other acute complaints. Cellulitic lesions have not gone beyond the demarcations 11/27: The erythema continues to slowly but gradually improve but she says that the pain has not improved from yesterday. 11/28: No acute event overnight. Erythematous lesions continue to resolve although she is complaining of pain and tenderness on the areas. Appreciate ID recommendation. We will switch IV antibiotics to Ancef. Reason For Visit: CELLULITIS RIGHT LOWER EXTREMITY Physical Exam Vital Signs: Temp Pulse Resp BP Pulse Ox 98.1 F 73 20 119/74 98 11/28/18 07:20 11/28/18 07:20 11/28/18 07:20 11/28/18 07:20 11/28/18 07:20 Intake & Output 11/27/18 11/28/18 11/29/18 06:59 06:59 06:59 Intake Total 3072 3315 150 Balance 3072 3315 150 Weight 242 lb 15.19 oz 247 lb 5.738 oz General appearance: PRESENT: no acute distress, well-developed, well-nourished Head exam: PRESENT: atraumatic, normocephalic Eye exam: PRESENT: conjunctiva pink, EOMI, PERRLA. ABSENT: scleral icterus Ear exam: PRESENT: normal external ear exam Mouth exam: PRESENT: moist, tongue midline Neck exam: ABSENT: carotid bruit, JVD, lymphadenopathy, thyromegaly Respiratory exam: PRESENT: clear to auscultation sourav. ABSENT: rales, rhonchi, wheezes Cardiovascular exam: PRESENT: RRR. ABSENT: diastolic murmur, rubs, systolic murmur Pulses: PRESENT: normal dorsalis pedis pul GI/Abdominal exam: PRESENT: normal bowel sounds, soft. ABSENT: distended, guarding, mass, organolmegaly, rebound, tenderness Rectal exam: PRESENT: deferred Neurological exam: PRESENT: alert, awake, oriented to person, oriented to place, oriented to time, oriented to situation, CN II-XII grossly intact. ABSENT: motor sensory deficit Results Laboratory Results: 11/28/18 09:01 11/28/18 06:30 11/28/18 11/28/18 11/28/18 06:30 06:30 09:01 WBC Cancelled 7.3 RBC Cancelled 3.76 Hgb Cancelled 12.0 D Hct Cancelled 34.1 L MCV Cancelled 91 MCH Cancelled 31.9 MCHC Cancelled 35.2 RDW Cancelled 12.9 Plt Count Cancelled 151 Sodium 141.1 Potassium 3.9 Chloride 109 H Carbon Dioxide 23 Anion Gap 9 BUN 6 L Creatinine 0.58 Est GFR ( Amer) > 60 Glucose 78 Calcium 9.1 Magnesium 1.9 Impressions: Chest X-Ray 11/24/18 20:00 IMPRESSION: No acute disease. Assessment and Plan - Diagnosis (1) Cellulitis of right lower extremity Is this a current diagnosis for this admission?: Yes Plan: 11/26: Currently on vancomycin and Zosyn. Blood cultures are growing group A strep 2/2. Will await final sensitivity tomorrow prior to de-escalation. 11/27: Switch IV antibiotics to clindamycin. 11/28: Appreciate ID recommendation. We will switch IV antibiotics to Ancef. (2) Streptococcal bacteremia Is this a current diagnosis for this admission?: Yes Plan: Switch IV antibiotics of clindamycin. Repeat blood culture has been negative. - Time Time Spent with patient: 15-24 minutes
[2018-11-28] MEDS: NICOTINE 21 MG/24 HR PATCH.TD24 TD PRN (17:46)
[2018-11-28] MEDS: MORPHINE SULFATE 10 MG/ML INJ IV PRN (21:32)
[2018-11-29] MEDS: TEMAZEPAM 15 MG CAPSULE PO PRN (01:25)
[2018-11-29] MEDS: CEFAZOLIN SODIUM 2 GM in DEXTROSE 5%-WATER 100 ML IV SCH ×3 (05:44→22:22)
[2018-11-29] MEDS: KETOROLAC TROMETHAMINE INJ/PF 30 MG/1 ML SDV IV PRN ×2 (05:44→22:24)
[2018-11-29] MEDS: GABAPENTIN 100 MG CAPSULE PO SCH (05:44)
[2018-11-29] MEDS: MORPHINE SULFATE 10 MG/ML INJ IV PRN ×4 (06:27→20:30)
[2018-11-29] MEDS: HEPARIN SOD (PORCINE) 5,000 UNIT/ML 1 ML VIAL SUBCUT SCH ×2 (10:51→17:40)
[2018-11-29] MEDS: IBUPROFEN 800 MG TABLET PO PRN (10:51)
[2018-11-29] MEDS: FAMOTIDINE 20 MG TABLET PO SCH ×2 (10:52→22:22)
[2018-11-29] MEDS: DOCUSATE SODIUM 100 MG CAPSULE PO SCH ×2 (10:52→17:20)
[2018-11-29] MEDS ORDERED: GABAPENTIN 100 MG CAPSULE PO SCH (14:00)
[2018-11-29] MEDS: GABAPENTIN 300 MG CAPSULE PO SCH ×2 (14:56→22:22)
--- NOTE | 2018-11-29 16:09 | XCELERA REPORT ---
[address] [place] [facility] [address] Lower Extremity Venous Evaluation Procedure: Color flow and duplex imaging of the veins of the right lower extremity as well as the left Common Femoral vein. Right Sided Venous Evaluation Normal vessel filling wall to wall, compression and augmentation as well as Colour flow down to the infrageniculate veins. Left Sided Venous Evaluation The left common femoral vein is fully compressible. Spontaneous and phasic flow is present in the left common femoral vein. Interpretation Summary No duplex evidence of DVT or obstruction in the right lower extremity nor in the left Common Femoral vein. Name: TIERA HARRISON Age: 28 yrs Gender: Female : 1990 Patient Status: Inpatient Patient Location: [address] [place] [address] Study Date: 11/29/2018 02:53 PM Reason For Study: R/O dvt, RIGHT LE Ordering Physician: MERY PALACIO Performed By: Osmany Kumar : MERY PALACIO > Lacho Phelps
--- NOTE | 2018-11-29 16:55 | PDOC PROGRESS REPORT ---
Subjective Progress Note for:: 11/29/18 Subjective:: Patient is a 28-year-old female with prior leg cellulitis who presented with increasing pain, swelling and tenderness in the right lower extremity. She was admitted for right lower extremity cellulitis and was started on IV antibiotics. 11/26: Patient says that the erythema and swelling have improved but the pain is slightly worse from yesterday. She denies any other acute complaints. Cellulitic lesions have not gone beyond the demarcations 11/27: The erythema continues to slowly but gradually improve but she says that the pain has not improved from yesterday. 11/28: Erythematous lesions continue to resolve although she is complaining of pain and tenderness on the areas. Appreciate ID recommendation. We will switch IV antibiotics to Ancef. 11/29: No acute event overnight. The redness continue to resolve although she is still complaining of pain and tenderness. No fever or chills. Reason For Visit: CELLULITIS RIGHT LOWER EXTREMITY Physical Exam Vital Signs: Temp Pulse Resp BP Pulse Ox 97.7 F 62 14 118/74 98 11/29/18 11:04 11/29/18 11:04 11/29/18 11:04 11/29/18 11:04 11/29/18 11:04 Intake & Output 11/28/18 11/29/18 11/30/18 06:59 06:59 06:59 Intake Total 3315 941 Balance 3315 941 Weight 247 lb 5.738 oz 236 lb 15.951 oz General appearance: PRESENT: no acute distress, well-developed, well-nourished Head exam: PRESENT: atraumatic, normocephalic Eye exam: PRESENT: conjunctiva pink, EOMI, PERRLA. ABSENT: scleral icterus Ear exam: PRESENT: normal external ear exam Mouth exam: PRESENT: moist, tongue midline Neck exam: ABSENT: carotid bruit, JVD, lymphadenopathy, thyromegaly Respiratory exam: PRESENT: clear to auscultation sourav. ABSENT: rales, rhonchi, wheezes Cardiovascular exam: PRESENT: RRR. ABSENT: diastolic murmur, rubs, systolic murmur Pulses: PRESENT: normal dorsalis pedis pul GI/Abdominal exam: PRESENT: normal bowel sounds, soft. ABSENT: distended, guarding, mass, organolmegaly, rebound, tenderness Rectal exam: PRESENT: deferred Extremities exam: PRESENT: full ROM. ABSENT: calf tenderness, clubbing, pedal edema Musculoskeletal exam: PRESENT: other - resolving erythematous lesios Neurological exam: PRESENT: alert, awake, oriented to person, oriented to place, oriented to time, oriented to situation, CN II-XII grossly intact. ABSENT: motor sensory deficit Results Laboratory Results: 11/28/18 09:01 11/28/18 06:30 Impressions: Chest X-Ray 11/24/18 20:00 IMPRESSION: No acute disease. Assessment and Plan - Diagnosis (1) Cellulitis of right lower extremity Is this a current diagnosis for this admission?: Yes Plan: 11/26: Currently on vancomycin and Zosyn. Blood cultures are growing group A strep 2/2. Will await final sensitivity tomorrow prior to de-escalation. 11/27: Switch IV antibiotics to clindamycin. 11/28: Appreciate ID recommendation. We will switch IV antibiotics to Ancef. 11/29: Continue Ancef. (2) Streptococcal bacteremia Is this a current diagnosis for this admission?: Yes Plan: Repeat blood culture has been negative. Continue Ancef.
--- NOTE | 2018-11-29 20:33 | RADIOLOGY REPORT (SQ) ---
EXAM DESCRIPTION: CT LOWER EXTREMITY WITHOUT IV CONTRAST COMPLETED DATE/TME: 11/29/2018 10:46 CLINICAL HISTORY: 28 years, Female, RIGHT LEG CELLULITIS COMPARISON: None. TECHNIQUE: Noncontrast CT of the right lower extremity was performed. Coronal and sagittal reformations were created. Images stored on PACS. All CT scanners at this facility use dose modulation, iterative reconstruction, and/or weight based dosing when appropriate to reduce radiation dose to as low as reasonably achievable (ALARA). [facility]: Dose Right [facility]: CareDose [facility]: Dose Right [facility]: Teradose 4D [facility]: Selectable Media LIMITATIONS: None. FINDINGS: Limited evaluation of the abdominopelvic structures reveals no suspicious finding. Mildly enlarged foraminal lymph node is noted measuring 1.7 x 1.6 cm in size on image 28 of series 3. There is mild diffuse inflammatory stranding about the soft tissues along the anterior aspect of the proximal thigh without focal drainable fluid collection. Additional diffuse inflammatory stranding is noted about the superficial soft tissues throughout the mid to lower leg. This inflammatory stranding extends distally into the dorsum of the hindfoot and into the visualized portions of the midfoot. No definite drainable fluid collections are clearly identified. Visualized tendinous structures of the ankle appear grossly intact. Bone windows show no destructive osseous lesions or fractures. IMPRESSION: Mild diffuse inflammatory stranding throughout the right lower extremity without focal drainable fluid collection is identified. The inflammatory stranding appears most pronounced about the mid to lower right lower extremity, extending into the dorsum of the hindfoot/midfoot. Overall, findings are most suspicious for soft tissue cellulitis. Mild enlarged right inguinal lymph node, likely reactive. TECHNICAL DOCUMENTATION: Quality ID # 436: Final reports with documentation of one or more dose reduction techniques (e.g., Automated exposure control, adjustment of the mA and/or kV according to patient size, use of iterative reconstruction technique) copyright 2011 [employer]- All Rights Reserved
[2018-11-30] MEDS: MORPHINE SULFATE 10 MG/ML INJ IV PRN ×3 (01:09→20:19)
[2018-11-30] MEDS: TEMAZEPAM 15 MG CAPSULE PO PRN (01:09)
[2018-11-30] MEDS: GABAPENTIN 300 MG CAPSULE PO SCH ×3 (06:34→21:53)
[2018-11-30] MEDS: KETOROLAC TROMETHAMINE INJ/PF 30 MG/1 ML SDV IV PRN ×3 (06:34→19:35)
[2018-11-30] MEDS: CEFAZOLIN SODIUM 2 GM in DEXTROSE 5%-WATER 100 ML IV SCH ×3 (06:34→21:53)
[2018-11-30] MEDS: DOCUSATE SODIUM 100 MG CAPSULE PO SCH ×2 (10:43→18:12)
[2018-11-30] MEDS: HEPARIN SOD (PORCINE) 5,000 UNIT/ML 1 ML VIAL SUBCUT SCH ×2 (10:43→18:13)
[2018-11-30] MEDS: FAMOTIDINE 20 MG TABLET PO SCH ×2 (10:43→21:53)
[2018-11-30] MEDS: NICOTINE 21 MG/24 HR PATCH.TD24 TD PRN (14:56)
--- NOTE | 2018-11-30 15:22 | PDOC PROGRESS REPORT ---
Subjective Progress Note for:: 11/30/18 Subjective:: Patient is a 28-year-old female with prior leg cellulitis who presented with increasing pain, swelling and tenderness in the right lower extremity. She was admitted for right lower extremity cellulitis and was started on IV antibiotics. 11/26: Patient says that the erythema and swelling have improved but the pain is slightly worse from yesterday. She denies any other acute complaints. Cellulitic lesions have not gone beyond the demarcations 11/27: The erythema continues to slowly but gradually improve but she says that the pain has not improved from yesterday. 11/28: Erythematous lesions continue to resolve although she is complaining of pain and tenderness on the areas. Appreciate ID recommendation. We will switch IV antibiotics to Ancef. 11/29: The redness continue to resolve although she is still complaining of pain and tenderness. No fever or chills. 11/30: No acute event overnight. Swelling and redness continue to resolve. Her pain is a little better today. Anticipate discharge in the next 24 hours. Reason For Visit: CELLULITIS RIGHT LOWER EXTREMITY Physical Exam Vital Signs: Temp Pulse Resp BP Pulse Ox 98.4 F 65 17 123/69 99 11/30/18 00:00 11/30/18 00:00 11/30/18 00:00 11/30/18 00:00 11/30/18 00:00 Intake & Output 11/29/18 11/30/18 12/01/18 06:59 06:59 06:59 Intake Total 941 1765 100 Balance 941 1765 100 Weight 236 lb 15.951 oz 237 lb 10.533 oz General appearance: PRESENT: no acute distress, well-developed, well-nourished Head exam: PRESENT: atraumatic, normocephalic Eye exam: PRESENT: conjunctiva pink, EOMI, PERRLA. ABSENT: scleral icterus Ear exam: PRESENT: normal external ear exam Mouth exam: PRESENT: moist, tongue midline Neck exam: ABSENT: carotid bruit, JVD, lymphadenopathy, thyromegaly Respiratory exam: PRESENT: clear to auscultation sourav. ABSENT: rales, rhonchi, wheezes Cardiovascular exam: PRESENT: RRR. ABSENT: diastolic murmur, rubs, systolic murmur Pulses: PRESENT: normal dorsalis pedis pul GI/Abdominal exam: PRESENT: normal bowel sounds, soft. ABSENT: distended, guarding, mass, organolmegaly, rebound, tenderness Rectal exam: PRESENT: deferred Neurological exam: PRESENT: alert, awake, oriented to person, oriented to place, oriented to time, oriented to situation, CN II-XII grossly intact. ABSENT: motor sensory deficit Results Laboratory Results: 11/28/18 09:01 11/28/18 06:30 Impressions: Chest X-Ray 11/24/18 20:00 IMPRESSION: No acute disease. Lower Extremity CT 11/29/18 10:46 IMPRESSION: Mild diffuse inflammatory stranding throughout the right lower extremity without focal drainable fluid collection is identified. The inflammatory stranding appears most pronounced about the mid to lower right lower extremity, extending into the dorsum of the hindfoot/midfoot. Overall, findings are most suspicious for soft tissue cellulitis. Mild enlarged right inguinal lymph node, likely reactive. TECHNICAL DOCUMENTATION: Quality ID # 436: Final reports with documentation of one or more dose reduction techniques (e.g., Automated exposure control, adjustment of the mA and/or kV according to patient size, use of iterative reconstruction technique) copyright 2011 [employer]- All Rights Reserved Assessment and Plan - Diagnosis (1) Cellulitis of right lower extremity Is this a current diagnosis for this admission?: Yes Plan: 11/26: Currently on vancomycin and Zosyn. Blood cultures are growing group A strep 2/2. Will await final sensitivity tomorrow prior to de-escalation. 11/27: Switch IV antibiotics to clindamycin. 11/28: Appreciate ID recommendation. We will switch IV antibiotics to Ancef. 11/30: Continue Ancef. (2) Streptococcal bacteremia Is this a current diagnosis for this admission?: Yes Plan: Repeat blood culture has been negative. Continue Ancef. - Time Time Spent with patient: 15-24 minutes
[2018-11-30] MEDS: IBUPROFEN 800 MG TABLET PO PRN (19:35)
[2018-12-01] MEDS: TEMAZEPAM 15 MG CAPSULE PO PRN (00:13)
[2018-12-01] MEDS: MORPHINE SULFATE 10 MG/ML INJ IV PRN ×2 (00:17→09:35)
[2018-12-01] MEDS: CEFAZOLIN SODIUM 2 GM in DEXTROSE 5%-WATER 100 ML IV SCH (05:55)
[2018-12-01] MEDS: KETOROLAC TROMETHAMINE INJ/PF 30 MG/1 ML SDV IV PRN (05:59)
[2018-12-01] MEDS: GABAPENTIN 300 MG CAPSULE PO SCH (05:59)
[2018-12-01] MEDS: DOCUSATE SODIUM 100 MG CAPSULE PO SCH (09:32)
[2018-12-01] MEDS: HEPARIN SOD (PORCINE) 5,000 UNIT/ML 1 ML VIAL SUBCUT SCH (09:33)
[2018-12-01] MEDS: FAMOTIDINE 20 MG TABLET PO SCH (09:40)
[2018-12-01 11:17] VITALS: BP 123/69
--- NOTE | 2018-12-01 17:37 | PDOC DISCHARGE SUMMARY ---
General - Admit/Disc Date/PCP Admission Date/Primary Care Provider: 11/24/18 23:56 Discharge Date: 12/01/18 - Discharge Diagnosis (1) Cellulitis of right lower extremity Is this a current diagnosis for this admission?: Yes (2) Streptococcal bacteremia Is this a current diagnosis for this admission?: Yes - Additional Information Resuscitation Status: Full Code Discharge Diet: Regular Discharge Activity: Activity As Tolerated Prescriptions: Fluconazole [Diflucan] 200 mg PO ONCE PRN #1 tablet PRN Reason: Cephalexin Monohydrate [Keflex 500 mg Capsule] 500 mg PO QID 7 Days #28 capsule Losartan Potassium 50 mg PO DAILY #30 tablet Hydrocodone/Acetaminophen [Skyforest 5-325 mg Tablet] 1 tab PO Q6HP PRN #12 tablet PRN Reason: Home Medications: Cephalexin Monohydrate [Keflex 500 mg Capsule] 500 mg PO QID 7 Days #28 capsule 12/01/18 Fluconazole [Diflucan] 200 mg PO ONCE PRN #1 tablet 12/01/18 Hydrocodone/Acetaminophen [Skyforest 5-325 mg Tablet] 1 tab PO Q6HP PRN #12 tablet 12/01/18 Losartan Potassium 50 mg PO DAILY #30 tablet 12/01/18 History of Present Illness History of Present Illness: Admitting hospitalist's H&P: TIERA HARRISON is a 28 year old female who presents the emergency room with acute onset of pain in her right groin. She admits a rapidly intensifying con stant pain which is now of moderate severity in the right groin radiating into the proximal right anteromedial thigh, starting late this afternoon. The groin pain has been accompanied by a fever as well as nausea and vomiting. The pain is worse with weightbearing/walking. She has not identified any additional accompanying or associated signs or symptoms. She admits prior similar episodes of cellulitis in her lower extremities. She has not identified any additional aggravating or ameliorating factors for her right groin pain. In the emergency room she was found to have a fever greater than 102 F and an elevated white blood count with tender palpable lymph nodes in the right inguinal distribution. She was also noted to be developing an area of erythema edema and tenderness in the lower leg/ankle region on the right which actually increased in size during her ER evaluation. Patient was subsequently admitted to the hospital for further evaluation and treatment. Hospital Course Hospital Course: Patient is a 28-year-old female with prior leg cellulitis who presented with increasing pain, swelling and tenderness in the right lower extremity. She was admitted for right lower extremity cellulitis and was started on IV antibiotics. Patient had slow but gradual improvement in her cellulitis. She did have streptococcal bacteremia (2/2 bottles). ID was also consulted. Repeat blood cultures were negative. Her IV antibiotics were eventually switched to Ancef. She will be discharged on p.o. Keflex per ID recommendation. On day of , lesions on the right thigh have completely resolved. Lesion on the right leg is minimal. Amlodipine is also switched to losartan to reduce risk of pedal edema. Physical Exam Vital Signs: Temp Pulse Resp BP Pulse Ox 98.5 F 54 L 18 123/69 99 12/01/18 11:13 12/01/18 11:13 12/01/18 11:13 12/01/18 11:13 12/01/18 11:13 Intake & Output 11/30/18 12/01/18 12/02/18 06:59 06:59 06:59 Intake Total 1765 2253 100 Balance 1765 2253 100 Weight 237 lb 10.533 oz 237 lb 3.478 oz General appearance: PRESENT: no acute distress, well-developed, well-nourished Head exam: PRESENT: atraumatic, normocephalic Eye exam: PRESENT: conjunctiva pink, EOMI, PERRLA. ABSENT: scleral icterus Ear exam: PRESENT: normal external ear exam Mouth exam: PRESENT: moist, tongue midline Neck exam: ABSENT: carotid bruit, JVD, lymphadenopathy, thyromegaly Respiratory exam: PRESENT: clear to auscultation sourav. ABSENT: rales, rhonchi, wheezes Cardiovascular exam: PRESENT: RRR. ABSENT: diastolic murmur, rubs, systolic murmur Pulses: PRESENT: normal dorsalis pedis pul GI/Abdominal exam: PRESENT: normal bowel sounds, soft. ABSENT: distended, guarding, mass, organolmegaly, rebound, tenderness Rectal exam: PRESENT: deferred Extremities exam: PRESENT: other - resolving erythematou lesion on the right leg, erythema on the right thigh compeltely resolved Neurological exam: PRESENT: alert, awake, oriented to person, oriented to place, oriented to time, oriented to situation, CN II-XII grossly intact. ABSENT: motor sensory deficit Results Laboratory Results: 11/28/18 09:01 11/28/18 06:30 11/26/18 14:05 Blood Blood Culture - Final NO GROWTH IN 5 DAYS 11/26/18 12:13 Blood Blood Culture - Final NO GROWTH IN 5 DAYS Impressions: Chest X-Ray 11/24/18 20:00 IMPRESSION: No acute disease. Lower Extremity CT 11/29/18 10:46 IMPRESSION: Mild diffuse inflammatory stranding throughout the right lower extremity without focal drainable fluid collection is identified. The inflammatory stranding appears most pronounced about the mid to lower right lower extremity, extending into the dorsum of the hindfoot/midfoot. Overall, findings are most suspicious for soft tissue cellulitis. Mild enlarged right inguinal lymph node, likely reactive. TECHNICAL DOCUMENTATION: Quality ID # 436: Final reports with documentation of one or more dose reduction techniques (e.g., Automated exposure control, adjustment of the mA and/or kV according to patient size, use of iterative reconstruction technique) copyright 2011 [employer]- All Rights Reserved Qualifiers - * PATIENT BEING DISCHARGED WITH ANY OF THE FOLLOWING DIAGNOSIS: No Acute Heart Failure - Is this a Heart Failure Patient?: No
== END 2018-12-01 12:09 | disposition home or self-care (01) | DRG 603 ==
LOC: ER 19:09 → EH 23:56 → 4S 11-25 01:13
PROVIDERS: ADMIT Emergency Medicine; ATTEND Emergency Medicine
DX: L03.115 Cellulitis of right lower limb (principal); R78.81 Bacteremia; D72.829 Elevated white blood cell count, unspecified; I10 Essential (primary) hypertension; R59.1 Generalized enlarged lymph nodes; B95.5 Unspecified streptococcus as the cause of diseases classified elsewhere; F17.210 Nicotine dependence, cigarettes, uncomplicated; Z79.2 Long term (current) use of antibiotics; Z79.52 Long term (current) use of systemic steroids; Z79.899 Other long term (current) drug therapy
CPT/HCPCS: 36415; 71046; 80048; 80053; 80061; 80202; 81001; 83036; 83605; 83735; 84439; 84443; 84481; 84703; 85025; 85027; 87040; 87077; 87186; 93971; 96365; 96367; 96375; 99285; J0690; J0696; J1644; J1885; J2270; J2300; J2405; J2543; J3370; J3490; J7030; J7050; J7060

== ENCOUNTER 2019-02-27 17:32 | Emergency (ER) | payer SELFPAY ==
[2019-02-27 17:51] VITALS: BP 147/95
[2019-02-27] MEDS ORDERED: KETOROLAC TROMETHAMINE 60 MG/2 ML SDV IM ONE (18:11)
--- NOTE | 2019-02-27 18:16 | ER Document Report ---
HPI - HPI Time Seen by Provider: 02/27/19 18:05 Pain Level: 4 Notes: 20-year-old female presents emergency room for complaints of dental pain for the last week. Patient just moved area and is unable to get a dentist. Reports some facial swelling. Pain is 5-10, throbbing achy. Has not tried [id number] medications. Patient is half a day smoker. Worse with time, nothing makes better. Denies fevers, chills, chest pain,palpitations, shortness of breath, dyspnea, nausea, vomiting, diarrhea, abdominal pain, hematuria,blurred vision, double vision, loss of vision, speech changes, LH, dizziness, syncope, headaches, wheezing, ST, URI, neck pain - REPRODUCTIVE Reproductive: DENIES: : Past Medical History - General Information source: Patient - Social History Smoking Status: Current Every Day Smoker Chew tobacco use (# tins/day): No Frequency of alcohol use: Social Drug Abuse: None Family History: denies: CAD, DM, Hypertension, Malignancy Patient has suicidal ideation: No Patient has homicidal ideation: No - Past Medical History Cardiac Medical History: Reports: Hx Hypertension Denies: Hx Coronary Artery Disease, Hx Heart Attack Pulmonary Medical History: Denies: Hx Asthma, Hx COPD Neurological Medical History: Denies: Hx Seizures Endocrine Medical History: Denies: Hx Diabetes Mellitus Type 1, Hx Diabetes Mellitus Type 2, Hx Hyperthyroidism, Hx Hypothyroidism GI Medical History: Denies: Hx Cirrhosis, Hx Crohn's Disease, Hx Hepatitis, Hx Ulcerative Colitis Musculoskeletal Medical History: Denies Hx Arthritis, Denies Hx Fibromyalgia, Denies Hx Gout Skin Medical History: Reports Hx Cellulitis - usually around the right ankle, Denies Hx Eczema, Denies Hx Psoriasis Infectious Medical History: Denies: Hx Hepatitis - Immunizations Hx Diphtheria, Pertussis, Tetanus Vaccination: Yes Vertical Provider Document - CONSTITUTIONAL Agree With Documented VS: Yes Exam Limitations: No Limitations General Appearance: WD/WN Notes: PHYSICAL EXAMINATION: reviewed vital signs by RN GENERAL: Well-appearing, well-nourished and in no acute distress. HEAD: Atraumatic, normocephalic. EYES: Pupils equal round and reactive to light, extraocular movements intact, conjunctiva are normal. ENT: Nares patent, oropharynx clear without exudates. Moist mucous membranes. TM with effusion bilaterally, no erythema. TMs intact. #12 gingiva with swelling, erythema and induration. No drainage or open wounds. No fluctuance. No facial swelling. Poor oral dentition, upper jaw with mild dental caries, no definite swelling or effusion. no trismus noted. Uvula is midline NECK: Normal range of motion, supple without lymphadenopathy LUNGS: Breath sounds clear to auscultation bilaterally and equal. No wheezes rales or rhonchi. HEART: Regular rate and rhythm without murmurs Female : deferred Musculoskeletal: Normal range of motion, no pitting or edema. No cyanosis. NEUROLOGICAL: Cranial nerves grossly intact. Normal speech, normal gait. Eboni l sensory, motor exams PSYCH: Normal mood, normal affect. SKIN: Warm, Dry, normal turgor, no rashes or lesions noted. - INFECTION CONTROL TRAVEL OUTSIDE OF THE [place] IN LAST 30 DAYS: No Course - Re-evaluation Re-evalutation: 02/27/19 18:15 Afebrile vital stable no distress. Nurse's notes reviewed. Patient given Toradol 60 mg IM. Follow-up with dentist and primary care provider. After performing a Medical Screening Examination, I estimate there is LOW risk for a DEEP SPACE INFECTION (e.g., PHILIP'S ANGINA OR RETROPHARYNGEAL ABSCESS), MENINGITIS, INTRACRANIAL HEMORRHAGE, or AIRWAY COMPROMISE, thus I consider the discharge disposition reasonable. Also, there is no evidence or peritonitis, sepsis, or toxicity. I have reevaluated this patient multiple times and no significant life threatening changes are noted. The patient and I have discussed the diagnosis and risks, and we agree with discharging home with close follow-up with the understanding that symptoms and presentations can change. We also discussed returning to the Emergency Department immediately if new or worsening symptoms occur. We have discussed the symptoms which are most concerning (e.g., changing or worsening pain, trouble swallowing or breathing, neck stiffness or fever) that necessitate immediate return. - Vital Signs Vital signs: Temp Pulse Resp BP Pulse Ox 98.4 F 72 16 147/95 H 99 02/27/19 18:04 02/27/19 17:49 02/27/19 18:04 02/27/19 17:49 02/27/19 18:04 Discharge - Discharge Clinical Impression: Dental caries Condition: Stable Disposition: HOME, SELF-CARE Instructions: Clindamycin ([facility]), [facility], Toothache ([facility]), Dentist, Toradol Injection ([facility]) Additional Instructions: Return immediately for any new or worsening symptoms. Follow up with primary care provider, call tomorrow to make followup appointment. Prescriptions: Naproxen 500 mg PO BID #10 tablet Forms: Return to Work Referrals: DARREN DUNLAP MD [ACTIVE STAFF] - Follow up as needed
== END 2019-02-27 18:35 | disposition home or self-care (01) ==
LOC: ER 17:32
DX: K02.9 Dental caries, unspecified (principal); K08.89 Other specified disorders of teeth and supporting structures; F17.200 Nicotine dependence, unspecified, uncomplicated; I10 Essential (primary) hypertension
CPT/HCPCS: 96374; 99282; J1885

== ENCOUNTER 2019-03-08 17:36 | Emergency (ER) | payer SELFPAY ==
[2019-03-08] MEDS ORDERED: ONDANSETRON 4 MG TAB.RAPDIS PO ONE (18:00)
--- NOTE | 2019-03-08 18:02 | ER Document Report ---
ED Medical Screen (RME) - General Chief Complaint: Leg Pain Stated Complaint: LEG PAIN Time Seen by Provider: 03/08/19 17:57 Mode of Arrival: Ambulatory Information source: Patient Notes: Patient presents complaining of left lower extremity pain, erythema and swelling. Patient states she has a history of lymphedema hypertension and venous insufficiency. Patient is concerned about possible cellulitis. Patient was hospitalized for sepsis due to cellulitis to the right lower extremity 3 months ago. Patient does complain of some nausea and lightheadedness. I have greeted and performed a rapid initial assessment of this patient. A comprehensive ED assessment and evaluation of the patient, analysis of test results and completion of the medical decision making process will be conducted by additional ED providers. TRAVEL OUTSIDE OF THE [place] IN LAST 30 DAYS: No - Related Data Allergies/Adverse Reactions: doxycycline Allergy (Verified 02/27/19 18:02) sulfamethoxazole [From Bactrim] Allergy (Verified 02/27/19 18:02) trimethoprim [From Bactrim] Allergy (Verified 02/27/19 18:02) Past Medical History - Past Medical History Cardiac Medical History: Reports: Hx Hypertension Denies: Hx Coronary Artery Disease, Hx Heart Attack Pulmonary Medical History: Denies: Hx Asthma, Hx COPD Neurological Medical History: Denies: Hx Seizures Endocrine Medical History: Denies: Hx Diabetes Mellitus Type 1, Hx Diabetes Mellitus Type 2, Hx Hyperthyroidism, Hx Hypothyroidism GI Medical History: Denies: Hx Cirrhosis, Hx Crohn's Disease, Hx Hepatitis, Hx Ulcerative Colitis Musculoskeltal Medical History: Denies Hx Arthritis, Denies Hx Fibromyalgia, Denies Hx Gout Skin Medical History: Reports Hx Cellulitis - usually around the right ankle, Denies Hx Eczema, Denies Hx Psoriasis Infectious Medical History: Denies: Hx Hepatitis - Immunizations Hx Diphtheria, Pertussis, Tetanus Vaccination: Yes Physical Exam - Vital signs Vitals: Temp Pulse Resp BP Pulse Ox 99.1 F 101 H 16 155/95 H 97 03/08/19 17:45 03/08/19 17:45 03/08/19 17:45 03/08/19 17:45 03/08/19 17:45 - General General appearance: Alert Notes: Mild erythema to distal third of left lower extremity with 1+ edema Course - Vital Signs Vital signs: Temp Pulse Resp BP Pulse Ox 99.1 F 101 H 16 155/95 H 97 03/08/19 17:45 03/08/19 17:45 03/08/19 17:45 03/08/19 17:45 03/08/19 17:45
[2019-03-08 18:38] LABS: ABSOLUTE EOSINOPHILS # (AUTO) 0.2 10^3/uL (0.0-0.6); ABSOLUTE LYMPHOCYTES (AUTO) 2.2 10^3/uL (0.5-4.7); ABSOLUTE MONOCYTES (AUTO) 0.5 10^3/uL (0.1-1.4); ABSOLUTE NEUT (AUTO) 10.2 10^3/uL (1.7-8.2); BASOPHILS % (AUTO) 0.4 % (0-2); EOSINOPHILS % (AUTO) 1.7 % (0-6); LYMPHOCYTES % (AUTO) 16.7 % (13-45); MEAN CORPUSCULAR HEMOGLOBIN 32.9 pg (27.0-33.4); MEAN CORPUSCULAR HGB CONC 34.8 g/dL (32.0-36.0); MEAN CORPUSCULAR VOLUME 95 fl (80-97); MONOCYTES % (AUTO) 4.1 % (3-13); PLATELET COUNT 190 10^3/uL (150-450); RED BLOOD COUNT 4.55 10^6/uL (3.72-5.28); RED CELL DISTRIBUTION WIDTH 12.7 % (11.5-14.0); SEGMENTED NEUTROPHILS % (AUTO) 77.1 % (42-78); TOTAL CELLS COUNTED % (AUTO) 100 %; WHITE BLOOD COUNT 13.2 10^3/uL (4.0-10.5)
[2019-03-08 18:58] LABS: ALBUMIN 4.5 g/dL (3.5-5.0); ALKALINE PHOSPHATASE 90 U/L (38-126); ANION GAP 12 (5-19); ASPARTATE AMINO TRANSFERASE 22 U/L (14-36); BILIRUBIN,DIRECT 0.3 mg/dL (0.0-0.4); BILIRUBIN,TOTAL 0.7 mg/dL (0.2-1.3); BLOOD UREA NITROGEN 6 mg/dL (7-20); CALCIUM 9.9 mg/dL (8.4-10.2); CARBON DIOXIDE 25 mmol/L (22-30); CHLORIDE 103 mmol/L (98-107); GLUCOSE 114 mg/dL (75-110); POTASSIUM 3.6 mmol/L (3.6-5.0); TOTAL PROTEIN 7.4 g/dL (6.3-8.2)
[2019-03-08] MEDS ORDERED: MORPHINE SULFATE 10 MG/ML INJ IV ONE (19:09)
[2019-03-08] MEDS ORDERED: CEFTRIAXONE INJ 1000 MG VIAL IV ONE (19:09)
--- NOTE | 2019-03-08 20:05 | ER Document Report ---
ED Extremity Problem, Lower - General Chief Complaint: Ankle Swelling Stated Complaint: LEG PAIN Time Seen by Provider: 03/08/19 17:57 Primary Care Provider: DEENA WHITESIDE MD [ACTIVE STAFF] - Follow up in 3-5 days Mode of Arrival: Ambulatory Notes: 28-year-old female with history of lymphedema and venous insufficiency presents with left lower extremity pain/redness/swelling that she noticed upon awakening. Patient has a history of cellulitis to the right lower extremity which required hospitalization secondary to sepsis in November of this year. Patient states she had a "low-grade fever" this morning. Patient denies any history of diabetes or HIV. TRAVEL OUTSIDE OF THE [place] IN LAST 30 DAYS: No - Related Data Allergies/Adverse Reactions: doxycycline Allergy (Verified 02/27/19 18:02) sulfamethoxazole [From Bactrim] Allergy (Verified 02/27/19 18:02) trimethoprim [From Bactrim] Allergy (Verified 02/27/19 18:02) Past Medical History - General Information source: Patient - Social History Smoking Status: Current Every Day Smoker Chew tobacco use (# tins/day): No Frequency of alcohol use: Occasional Drug Abuse: None Family History: denies: CAD, DM, Hypertension, Malignancy Patient has suicidal ideation: No Patient has homicidal ideation: No - Past Medical History Cardiac Medical History: Reports: Hx Hypertension Denies: Hx Coronary Artery Disease, Hx Heart Attack Pulmonary Medical History: Denies: Hx Asthma, Hx COPD Neurological Medical History: Denies: Hx Seizures Endocrine Medical History: Denies: Hx Diabetes Mellitus Type 1, Hx Diabetes Mellitus Type 2, Hx Hyperthyroidism, Hx Hypothyroidism GI Medical History: Denies: Hx Cirrhosis, Hx Crohn's Disease, Hx Hepatitis, Hx Ulcerative Colitis Musculoskeletal Medical History: Denies Hx Arthritis, Denies Hx Fibromyalgia, Denies Hx Gout Skin Medical History: Reports Hx Cellulitis - usually around the right ankle, Denies Hx Eczema, Denies Hx Psoriasis Infectious Medical History: Denies: Hx Hepatitis - Immunizations Hx Diphtheria, Pertussis, Tetanus Vaccination: Yes Review of Systems - Review of Systems Notes: Constitutional: Negative for fever. HENT: Negative for sore throat. Eyes: Negative for visual changes. Cardiovascular: Negative for chest pain. Respiratory: Negative for shortness of breath. Gastrointestinal: Negative for abdominal pain, vomiting or diarrhea. Genitourinary: Negative for dysuria. Musculoskeletal: Positive for left lower extremity pain/swelling/redness. Negative for back pain. Skin: Negative for rash. Neurological: Negative for headaches, weakness or numbness. 10 point ROS negative except as marked above and in HPI. Physical Exam - Vital signs Vitals: Temp Pulse Resp BP Pulse Ox 99.1 F 101 H 16 155/95 H 97 03/08/19 17:45 03/08/19 17:45 03/08/19 17:45 03/08/19 17:45 03/08/19 17:45 - Notes Notes: GENERAL: Well-appearing, well-nourished and in no acute distress. HEAD: Atraumatic, normocephalic. EYES: Pupils equal round and reactive to light, extraocular movements intact, sclera anicteric, conjunctiva are normal. NECK: Normal range of motion, supple without lymphadenopathy or JVD. ABDOMEN: Soft, nontender, normoactive bowel sounds. No guarding, no rebound. No masses appreciated. EXTREMITIES: Normal range of motion, no pitting or edema. No clubbing or cyanosis. LLE: Approximately 6 cm area of redness with warmth to left lateral aspect of distal LE (proximal to ankle) NEUROLOGICAL: Cranial nerves II through XII grossly intact. Normal speech, normal gait. PSYCH: Normal mood, normal affect. SKIN: Warm, Dry, normal turgor, no rashes or lesions noted. Course - Re-evaluation Re-evalutation: 03/08/19 28-year-old female presents with left lower extremity cellulitis notes she noticed upon awakening. Patient has a history of cellulitis in the right lower extremity which progressed to sepsis which required admission in November. Patient admits "low-grade fever." Patient has a temp of 99 F here in ER. Patient is well-appearing, nontoxic. CBC shows white blood count of 13.2. Ultrasound of left lower extremity pending. Left lower extremity will treat with Rocephin and Keflex p.o. to go home on. Did not give clindamycin due to patient recently being on it for dental abscess. 03/08/19 20:30 RN states that patient is refusing ultrasound due to her ride being here soon. Patient will be given order for Doppler ultrasound to be done outpatient in 1 dose of Lovenox subcu. Educated patient on the importance of making sure that she does get this ultrasound. Patient also given prescription for Keflex. Patient given strict return precautions. Patient also given referral to PCP. Patient voices understanding and agrees with plan of care. - Vital Signs Vital signs: Temp Pulse Resp BP Pulse Ox 99.1 F 101 H 16 155/95 H 97 03/08/19 18:04 03/08/19 17:45 03/08/19 18:04 03/08/19 17:45 03/08/19 18:04 - Laboratory Result Diagrams: 03/08/19 18:08 03/08/19 18:08 Laboratory results interpreted by me: 03/08/19 03/08/19 18:08 18:08 WBC 13.2 H Absolute Neuts (auto) 10.2 H BUN 6 L Glucose 114 H Discharge - Discharge Clinical Impression: Cellulitis of left lower extremity Condition: Stable Disposition: HOME, SELF-CARE Instructions: Cellulitis ([facility]) Additional Instructions: Please take Keflex as prescribed. We wrote you for an order for an outpatient Doppler venous ultrasound of your left lower leg. Please call the number included to set up a time for this. We also gave you 1 dose of Lovenox to help prevent a blood clot. Please return immediately to ER if you start having any worsening symptoms, including worsening redness, worsening swelling, fever, wors ening pain, pus drainage, chest pain, shortness of breath, or any other symptoms that are concerning to you. Prescriptions: Cephalexin Monohydrate [Keflex 500 mg Capsule] 500 mg PO Q6H 10 Days #40 capsule Forms: Follow-Up Radiology Testing Referrals: DEENA WHITESIDE MD [ACTIVE STAFF] - Follow up in 3-5 days
[2019-03-08] MEDS ORDERED: ENOXAPARIN SODIUM INJ 120 MG/0.8 ML DISP.SYRIN SUBCUT ONE (20:33)
[2019-03-08] MEDS ORDERED: HYDROCODONE/ACETAMINOPHEN 5-325 MG (6 TAB/ER DISP) PO PRN (20:36)
[2019-03-08 20:59] VITALS: BP 144/92
== END 2019-03-08 20:59 | disposition home or self-care (01) ==
LOC: ER 17:36
DX: L03.116 Cellulitis of left lower limb (principal); M79.605 Pain in left leg; M79.89 Other specified soft tissue disorders; F17.200 Nicotine dependence, unspecified, uncomplicated; I10 Essential (primary) hypertension; Z88.3 Allergy status to other anti-infective agents
CPT/HCPCS: 99283; 96372; 96361; 96375; 96365; 36415; 84703; 85025; 80053; S0119; J1650; J2270; J0696